=== PATIENT | female | born 1995 | race Caucasian/White ===

== ENCOUNTER 2016-04-22 10:20 | Emergency (ER) | payer OTHER ==
[2016-04-22] MEDS ORDERED: ONDANSETRON 4 MG/2ML 2 ML VIAL ONE (12:02)
[2016-04-22] MEDS ORDERED: MAALOX/LIDO2%VISC/SIMETHICONE 40 ML BOT ONE (12:02)
[2016-04-22 12:14] LABS: URINE BILIRUBIN NEGATIVE (NEGATIVE); URINE BLOOD 1+ (NEGATIVE); URINE GLUCOSE (UA) NEGATIVE (NEGATIVE); URINE LEUKOCYTE ESTERASE TRACE (NEGATIVE); URINE NITRITE NEGATIVE (NEGATIVE); URINE PROTEIN 1+ (NEGATIVE)
[2016-04-22 12:16] LABS: HCG,QUALITATIVE URINE NEGATIVE; URINE APPEARANCE HAZY; URINE COLOR YELLOW; URINE UROBILINOGEN 4 mg/dL (0-1 mg/dl)
[2016-04-22] MEDS ORDERED: SODIUM CHLORIDE 0.9% 1,000 ML ONE (12:18)
[2016-04-22 12:26] LABS: URINE AMORPHOUS SEDIMENT FEW; URINE BACTERIA FEW; URINE MUCUS 2+; URINE WBC 0-1 /hpf
[2016-04-22 12:30] LABS: BASO % 0.3 % (0.2-1.0); HEMATOCRIT 41.2 % (37.0-47.0); HEMOGLOBIN 13.4 gm/l (12.0-16.0); IMM NEUT # 0.1 K/mm3 (0-0.2); IMM NEUT% 0.5 % (0-1); LYMPH # 0.8 (1.0-4.8); LYMPH % 5.7 % (15-45); MEAN CORPUSCULAR HGB CONC 32.5 g/dl (33.0-37.0); MEAN PLATELET VOLUME 10.2 fl (7.4-10.4); MONO # 0.4 (0.0-0.8); MONO % 2.9 % (4-12); NEUT % 90.6 % (43-75); PLATELET COUNT 432 K/mm3 (130-400); RED CELL DISTRIBUTION WIDTH 14.4 % (11.5-14.5)
[2016-04-22 12:40] LABS: ALB/GLOB RATIO 1.3 (>1.0); ALBUMIN 4.6 gm/dL (3.5-5.7); CALCIUM 9.8 mg/dL (8.6-10.3)
[2016-04-22 14:10] LABS: THYROID STIMULATING HORMONE 0.09 uIU/ml (0.34-5.60)
[2016-04-22 14:23] LABS: THYROXINE (T4) 16.2 ug/dl (6.1-12.2)
[2016-04-22 15:16] LABS: BAND 0 % (0-10); BASOPHIL 0 % (0-1); EOSINOPHIL 0 % (1-3); LYMPHOCYTE 6 % (15-45); MONOCYTE 5 % (4-12); NEUTROPHILS 89 % (43-75); PLATELET ESTIMATE NORMAL (NORMAL); TOTAL CELLS COUNTED 100
== END 2016-04-22 13:40 | disposition home or self-care (01) ==
LOC: ED 10:20
DX: K29.70 Gastritis, unspecified, without bleeding (principal); E07.9 Disorder of thyroid, unspecified